=== PATIENT | male | born 1965 | race Caucasian/White ===

== ENCOUNTER 2016-08-16 15:52 | Inpatient (IN) | payer OTHER ==
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
--- NOTE | ~2016-08-16 | DS ---
Unit #: [id number] #: [id number] Patient: ANANT BARBOZA [id number] [address] [address] [id number] I MR#: [id number] NAME: ANANT BARBOZA. ROOM: 302 Age: 50 Sex: M Admission Date: 08/16/2016 : 1965 Discharge Date: Attending Physician: Qing Gandara M.D. Primary Care Physician: Jessica Weldon M.D. DISCHARGE SUMMARY DISCHARGE DIAGNOSES 1. Hyponatremia secondary to alcohol abuse. 2. Alcohol dependence with mild delirium tremens. 3. Hypertensive crisis. 4. History of traumatic brain injury with history of brain hemorrhage. CONSULTATIONS [facility]. PROCEDURES None. DIAGNOSTIC TESTING LAB DATA: Glucose 123, sodium 131, potassium 4, creatinine 0.7. WBC 5.3, hemoglobin 12.4, platelets 135, urine drug screen is negative. ALLERGIES None. DISCHARGE MEDICATIONS 1. Remeron 30 mg at bedtime. 2. Zoloft 150 p.o. daily. 3. Inderal 20 daily. 4. Lisinopril 40 daily. 5. Multivitamin 1 tablet daily. 6. Melatonin 10 daily. 7. Thiamine 100 daily. 8. Folic acid 1 mg daily. 9. Librium 25 p.o. daily. 10. Hydralazine 25 p.o. b.i.d. HOSPITALIZATION COURSE This is a 50 year old admitted in medical unit for medical clearance for psychiatric inpatient admission. Hyponatremia secondary to alcohol abuse. Patient received IV fluids. Currently sodium is 131. Stop IV fluids. Advised to quit alcohol. Monitor sodium level. I am going to do a BMP in one week and follow with PCP with the results. Alcohol dependence with mild delirium tremens. Patient received alcohol withdrawal protocol. Continue with Librium. Follow with [facility]. Hypertensive crisis. Most likely secondary to DT. Patient was continued Unit #: [id number] #: [id number] Patient: ANANT BARBOZA with his lisinopril and Inderal. I added hydralazine, and I gave prescription. DISCHARGE PLAN 1. Patient is medically stable to go to [facility]. 2. Follow with PCP in 1 week for low sodium and hypertension. Dictated by... Paul Sosa TD: 08/17/2016 11:52 JOB #: [id number] DISCHARGE SUMMARY Page 1 of 1 X Qing Gandara MD X DISCHARGE SUMMARY
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
[2016-08-16 16:45] LABS: BASOPHIL# 0.1 X10e3 (0-0.3); BASOPHIL% 0.9 % (0-2.5); EOSINOPHIL# 0.2 X10e3 (0-0.7); EOSINOPHIL% 2.5 % (0.0-7.0); HEMATOCRIT 40.2 % (38.0-50.0); HEMOGLOBIN 13.7 gm/dL (13.0-16.0); LYMPHOCYTE# 1.7 X10e3 (1.0-3.5); LYMPHOCYTE% 24.6 % (17.0-45.0); MEAN CORPUSCULAR HEMOGLOBIN 29.6 PG (28-34); MEAN PLATELET VOLUME 8.8 FL (6.5-11.5); MONOCYTE# 0.8 X10e3 (0-1.0); MONOCYTE% 10.8 % (3.0-12.0); NEUTROPHIL# 4.4 X10e3 (1.5-7.1); NEUTROPHIL% 61.2 % (40-75); PLATELET COUNT 155 X10e3 (140-420); RED BLOOD COUNT 4.62 X10e (3.90-5.60); RED CELL DISTRIBUTION WIDTH 13.6 % (11.0-15.5); WHITE BLOOD COUNT 7.1 X10e3 (4.0-10.5)
[2016-08-16 16:46] LABS: DIFF IND NO
[2016-08-16 17:27] LABS: ALBUMIN SERUM 4.4 g/dL (3.5-5.0); ALKALINE PHOSPHATASE 64 U/L (32-92); ALT (SGPT) 85 U/L (10-40); AST (SGOT) 74 U/L (10-42); BILIRUBIN, DIRECT 0.2 mg/dL (0.0-0.2); BILIRUBIN,INDIRECT 0.7 mg/dL (0.0-0.9); BILIRUBIN,TOTAL 0.9 mg/dL (0.2-2.0); BLOOD UREA NITROGEN 8 mg/dL (9-23); BUN/CREATININE RATIO 13.33; CALCIUM SERUM 8.8 mg/dL (8.4-10.2); CARBON DIOXIDE 23 mmol/L (22-31); CHLORIDE 89 mmol/L (100-111); CREATININE SERUM 0.6 mg/dL (0.6-1.4); GLOM FILT RATE Estimated 118.1 mL/min (>60); GLUCOSE FASTING 86 mg/dL (70-110); POTASSIUM 3.9 mmol/L (3.5-5.1); SALICYLATE <4.0 mg/dL
[2016-08-16 17:31] LABS: ACETAMINOPHEN <10 ug/mL; ALCOHOL BLOOD <5 mg/dL (0); SODIUM 121 mmol/L (135-145)
[2016-08-16 18:10] LABS: AMPHETAMINE NEG (NEG); BARBITURATES NEG (NEG); BENZODIAZEPINES NEG (NEG); COCAINE NEG (NEG); MARIJUANA NEG (NEG); OPIATES NEG (NEG); TRICYCLIC ANTIDEPRESSANTS NEG (NEG); U METHADONE NEG (NEG)
[2016-08-16] MEDS ORDERED: MIRTAZAPINE30 MG PO (20:02)
[2016-08-16] MEDS ORDERED: MELATONIN10 M1 PO (20:02)
[2016-08-16] MEDS ORDERED: ZOLOFT PO (20:02)
[2016-08-16] MEDS ORDERED: ZESTRIL40 MG PO (20:03)
[2016-08-16] MEDS ORDERED: INDERAL20 MG PO (20:27)
[2016-08-17 06:04] LABS: HEMATOCRIT 37.2 % (38.0-50.0); HEMOGLOBIN 12.4 gm/dL (13.0-16.0); MEAN CELL VOLUME 88.2 FL (83-96); MEAN CORPUSCULAR HEMOGLOBIN 29.4 PG (28-34); MEAN CORPUSCULAR HGB CONC 33.3 g/dL (30-36); MEAN PLATELET VOLUME 9.2 FL (6.5-11.5); RED BLOOD COUNT 4.22 X10e (3.90-5.60); RED CELL DISTRIBUTION WIDTH 13.8 % (11.0-15.5); WHITE BLOOD COUNT 5.3 X10e3 (4.0-10.5)
[2016-08-17 06:42] LABS: BUN/CREATININE RATIO 14.28; CALCIUM SERUM 8.8 mg/dL (8.4-10.2); CREATININE SERUM 0.7 mg/dL (0.6-1.4); GLOM FILT RATE Estimated 110.9 mL/min (>60)
== END 2016-08-17 18:42 | DRG 641 ==
LOC: CED 15:52 → CEDOF 18:13 → C3A PCU 22:06 → CEDOF 22:06 → C3A PCU 23:00 → CEDOF 23:00 → C3A PCU 08-17 08:01
PROVIDERS: Emergency Medicine; Internal Medicine
DX: E87.1 Hypo-osmolality and hyponatremia (principal); F10.231 Alcohol dependence with withdrawal delirium; I16.9 Hypertensive crisis, unspecified; F39 Unspecified mood [affective] disorder; Z87.820 Personal history of traumatic brain injury
CPT/HCPCS: 36415; 80048; 80076; 80307; 82947; 85025; 85027; 96374; 99285; G0480; J1650; J2060; J3411; J7042

== ENCOUNTER 2016-08-17 15:29 | Inpatient (IN) | payer OTHER ==
--- NOTE | ~2016-08-17 | PN ---
Unit #: [id number] #: [id number] Patient: FIDEL NARANJO [id number] [facility] [address] [place] [address] [id number] MR#: [id number] NAME: FIDEL NARANJO. ROOM: P186 Age: 50 Sex: M Admission Date: 08/17/2016 : 1965 Attending Physician: Cole Miramontes M.D. Admitting Physician: Cole Miramontes M.D. Primary Care Physician: Paul Fish PROGRESS NOTES DATE 08/20/2016 DISCUSSION Mr. Fidel Naranjo is a 50-year-old male seen on 08/20/2016. Patient interviewed, chart reviewed, obtained information from nursing staff. The patient continues to report feeling shaky, anxious, nervous tremors, anxiety, mood lability, isolative, guarded. Vital signs 98.4, 81, 132/95. Complete review of systems unremarkable. MENTAL STATUS EXAMINATION General appearance: Patient dressed casually. Attention span and concentration fair. Oriented in place and person. Mood and affect labile. Speech monotone. Thought processes: [place]. Patient denied any thoughts of harming self or others, but having above-mentioned withdrawal symptoms. Recent and remove memory poor. Insight and judgment poor. DIAGNOSIS 1. Alcohol use disorder, moderate. 2. Mood disorder, NOS. ASSESSMENT/PLAN Advised to continue with current medication and therapeutic protocol. If needed, consider further adjustment of medication. Dictated by... Paul Soliz/che TD: 08/22/2016 09:43 JOB #: [id number] Unit #: [id number] #: [id number] Patient: FIDEL NARANJO PROGRESS NOTES Page 1 of 1 X Cole Miramontes MD PROGRESS NOTE
--- NOTE | ~2016-08-17 | PN ---
Unit #: [id number] #: [id number] Patient: FIDEL BARBOZA [id number] [facility] [address] [place] [address] [id number] I MR#: [id number] NAME: FIDEL BARBOZA. ROOM: P186 Age: 50 Sex: M Admission Date: 08/17/2016 : 1965 Attending Physician: Cole Miramontes M.D. Admitting Physician: Cole Miramontes M.D. Primary Care Physician: Paul Fish PROGRESS NOTES DATE OF SERVICE: 08/21/2016 DISCUSSION Fidel is a 50-year-old male, seen on 08/21/2016. The patient interviewed, chart reviewed, and obtained information from nursing staff. The patient reported that he is still having withdrawal symptoms; anxiety, nervousness, and tremors. The patient's vital signs; temperature 98.4, pulse 58, respirations 16, and blood pressure 103/65. Complete review of systems unremarkable. MENTAL STATUS EXAMINATION General appearance, the patient dressed casually. Attention span and concentration, fair. Oriented in place and person. Mood and affect, labile. Speech, monotone. Thought process, concrete. The patient denied any thoughts of harming self or others. Recent and remote memory, poor. Insight and judgment, poor. DIAGNOSES 1. Alcohol use disorder, moderate. 2. Mood disorder, not otherwise specified. ASSESSMENT AND PLAN Advised to continue with current medication and therapeutic protocol. If needed, consider further adjustment of medication. Dictated by... Paul Soliz/esme TD: 08/22/2016 23:50 JOB #: [id number] Unit #: [id number] #: [id number] Patient: FIDEL BARBOZA CARLY PROGRESS NOTES Page 1 of 1 X Cole Miramontes MD X PROGRESS NOTE
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
--- NOTE | ~2016-08-17 | HP ---
Unit #: [id number] #: [id number] Patient: FIDEL BARBOZA [id number] [facility] [address] [place] [address] [id number] I MR#: [id number] NAME: FIDEL BARBOZA ROOM: P186 Age: 50 Sex: M Admission Date: 08/17/2016 : 1965 Attending Physician: Cole Miramontes M.D. Admitting Physician: Cole Miramontes M.D. Primary Care Physician: Jessica Weldon M.D. HISTORY AND PHYSICAL Fidel is a 50 year old admitted to [facility] because of his abuse of alcohol. He was admitted to [facility] on 08/16/16 because of his level of intoxication and low sodium. When medically stable, he was discharged and transferred to [facility] for psychiatric care. Patient was seen and H and P dated 08/16/16 was reviewed. This is current. No changes. Please see H and P dated 08/16/16. Dictated by... Shirley Barrera P.A.-C. for Paul Almanzar/sarah TD: 08/18/2016 19:37 JOB #: [id number] HISTORY AND PHYSICAL Page 1 of X Shirley Barrera HISTORY AND PHYSICAL
--- NOTE | ~2016-08-17 | PN ---
Unit #: [id number] #: [id number] Patient: ANANT BARBOZA [id number] [facility] [address] [place] [address] [id number] MR#: [id number] NAME: ANANT BARBOZA. ROOM: P186 Age: 50 Sex: M Admission Date: 08/17/2016 : 1965 Attending Physician: Cole Miramontes M.D. Admitting Physician: Cole Miramontes M.D. Primary Care Physician: Paul Fish PROGRESS NOTES DATE 08/22/2016 DISCUSSION Mr. Parra is a 50-year-old male. The patient interviewed, chart reviewed. Obtained information from nursing staff. The patient was compliant and cooperative making progress. The patient was able to maintain safe behavior but still seclusive, isolative, no side effects from medication. Complete review of systems unremarkable. MENTAL STATUS EXAMINATION General appearance, the patient dressed casually. Attention span and concentration fair. Oriented to time, place and person. Mood and affect labile. Speech monotone. Thought process concrete. The patient denied any thoughts of harming self or others. Recent and remote memory poor. Insight and judgement poor. DIAGNOSES Alcohol use disorder severe. Posttraumatic stress disorder chronic ASSESSMENT/PLAN Advise to continue with current medication and therapeutic protocol. If needed consider further adjustment of medication. Dictated by... Paul Soliz/eddie TD: 08/24/2016 00:11 JOB #: [id number] Unit #: [id number] #: [id number] Patient: ANANT BARBOZA PROGRESS NOTES Page 1 of 1 X Cole Miramontes MD PROGRESS NOTE
--- NOTE | ~2016-08-17 | DS ---
Unit #: [id number] #: [id number] Patient: ANANT BARBOZA [id number] [facility] [address] [place] [address] [id number] MR#: [id number] NAME: ANANT BARBOZA. ROOM: 86 Age: 50 Sex: M Admission Date: 08/17/2016 : 1965 Discharge Date: 08/23/2016 Attending Physician: Cole Miramontes M.D. Primary Care Physician: Jessica Weldon M.D. DISCHARGE SUMMARY REASON FOR ADMISSION Alcohol detox and suicidal ideation. HOSPITAL COURSE The patient was admitted to inpatient unit on 08/17/2016 and discharged on 08/23/2016. The patient was treated with psychotherapy, psychoeducation, and structured milieu. The patient responded well with the above modalities of treatment. Subsequently, the patient was discharged with a plan to follow up in outpatient program. DISCHARGE MEDICATIONS Trazodone 100 mg at bedtime for sleep, , Zoloft 150 mg at bedtime for depression. DISCHARGE DIAGNOSES Psychiatric: Alcohol use disorder, severe, F10.20; mood disorder, not otherwise specified, F32.9; rule out bipolar mood disorder. Secondary diagnosis: Deferred. Medical diagnoses: History of traumatic brain injury, history of hepatitis C, history of hyponatremia, hypertensive crisis. Stressors: Psychosocial stressor. DISCHARGE INSTRUCTIONS The patient to follow up in outpatient clinic as per social service manager. CONDITION ON DISCHARGE The patient was pleasant and cooperative. Denied any psychotic symptom or any suicidal ideation. PROGNOSIS Guarded. DIET AND ACTIVITY As tolerated. Dictated by... Cole Miramontes M.D. [facility] Unit #: [id number] #: [id number] Patient: ANANT BARBOZA TD: 08/23/2016 18:13 JOB #: [id number] DISCHARGE SUMMARY Page 1 of 1 X Cole Miramontes MD X DISCHARGE SUMMARY
--- NOTE | ~2016-08-17 | PN ---
Unit #: [id number] #: [id number] Patient: ANANT BARBOZA [id number] [facility] [address] [place] [address] [id number] MR#: [id number] NAME: ANANT BARBOZA. ROOM: P186 Age: 50 Sex: M Admission Date: 08/17/2016 : 1965 Attending Physician: Cole Miramontes M.D. Admitting Physician: Cole Miramontes M.D. Primary Care Physician: Paul Fish PROGRESS NOTES DATE OF SERVICE 08/19/2016 DISCUSSION Mr. Parra is a 50-year-old male. Patient interviewed, chart reviewed, I obtained information from nursing staff. Patient reported still having withdrawal symptoms. Patient compliant, cooperative, isolative, flat affect, sad, dysphoric mood. Patient denied any thoughts of harming self or others. Compliant with medication. Vital signs: 98.6, 53, 136/90 COMPLETE REVIEW OF SYSTEMS Unremarkable. MENTAL STATUS EXAMINATION GENERAL APPEARANCE: Patient dressed casually. ATTENTION SPAN AND CONCENTRATION: Fair. Oriented in place and person. MOOD AND AFFECT: Labile. SPEECH: Regular rate. THOUGHT PROCESS: Goal directed. Patient denied any thoughts of harming self or others. RECENT AND REMOTE MEMORY: Poor. INSIGHT AND JUDGMENT: Poor. DIAGNOSIS Alcohol use disorder, severe ASSESSMENT/PLAN Advised to continue with current medication and therapeutic protocol. If needed, consider further adjustment in medication. Dictated by... Paul Soliz/christie TD: 08/19/2016 21:49 JOB #: [id number] Unit #: [id number] #: [id number] Patient: ANANT BARBOZA PROGRESS NOTES Page 1 of 1 X Cole Miramontes MD X PROGRESS NOTE
[~2016-08-17 15:29] MED LIST: INDERAL20 MG PO; MELATONIN10 M1 PO; MIRTAZAPINE30 MG PO; ZESTRIL40 MG PO; ZOLOFT PO
[2016-08-18 09:59] LABS: URINE APPEARANCE CLEAR; URINE BILIRUBIN NEG (NEG); URINE BLOOD NEG (NEG); URINE COLOR YELLOW; URINE GLUCOSE NEG (NEG); URINE KETONE NEG (NEG); URINE LEUKOCYTE ESTERASE NEG (NEG); URINE NITRATE NEG (NEG); URINE PH 7.5 (5-8); URINE PROTEIN NEG (NEG); URINE SPECIFIC GRAVITY 1.006 (1.003-1.035)
[2016-08-18 12:46] LABS: BASOPHIL% 0.8 % (0-2.5); EOSINOPHIL# 0.3 X10e3 (0-0.7); EOSINOPHIL% 4.9 % (0.0-7.0); HEMATOCRIT 40.7 % (38.0-50.0); HEMOGLOBIN 13.3 gm/dL (13.0-16.0); LYMPHOCYTE# 1.6 X10e3 (1.0-3.5); LYMPHOCYTE% 31.7 % (17.0-45.0); MEAN CELL VOLUME 90.2 FL (83-96); MEAN CORPUSCULAR HEMOGLOBIN 29.6 PG (28-34); MEAN CORPUSCULAR HGB CONC 32.8 g/dL (30-36); MONOCYTE# 0.9 X10e3 (0-1.0); MONOCYTE% 18.6 % (3.0-12.0); NEUTROPHIL# 2.2 X10e3 (1.5-7.1); PLATELET COUNT 127 X10e3 (140-420); RED BLOOD COUNT 4.51 X10e (3.90-5.60); RED CELL DISTRIBUTION WIDTH 13.7 % (11.0-15.5); WHITE BLOOD COUNT 5.1 X10e3 (4.0-10.5)
[2016-08-18 12:48] LABS: DIFF IND NO
[2016-08-18 14:59] LABS: BILIRUBIN,TOTAL 0.5 mg/dL (0.2-2.0); CALCIUM SERUM 9.1 mg/dL (8.4-10.2); CREATININE SERUM 0.8 mg/dL (0.6-1.4); GLOM FILT RATE Estimated 104.9 mL/min (>60); POTASSIUM 4.3 mmol/L (3.5-5.1); PROTEIN TOTAL SERUM 7.2 g/dL (6.0-8.3)
== END 2016-08-23 08:37 | DRG 897 ==
LOC: P1E 19:12
PROVIDERS: Psychiatry & Neurology Psychiatry
PROC: HZ2ZZZZ Detoxification Services for Substance Abuse Treatment (ICD-10-PCS; principal; 2016-08-17)
DX: F10.20 Alcohol dependence, uncomplicated (principal); F31.89 Other bipolar disorder; E87.1 Hypo-osmolality and hyponatremia; I16.9 Hypertensive crisis, unspecified; Z87.820 Personal history of traumatic brain injury; B19.20 Unspecified viral hepatitis C without hepatic coma; F43.12 Post-traumatic stress disorder, chronic
CPT/HCPCS: 80053; 81003; 85025; 86592

== ENCOUNTER 2016-11-16 10:59 | Emergency (ER) | payer OTHER | END 2016-11-16 12:05 | disposition home or self-care (01) | LOC: SED 10:59 | DX: M19.072 Primary osteoarthritis, left ankle and foot (principal); Z79.899 Other long term (current) drug therapy | CPT/HCPCS: 99283 ==